=== PATIENT | female | born 1955 | race Asian ===

== ENCOUNTER 2019-12-24 18:19 | Inpatient (IN) | payer OTHER ==
[2019-12-24] MEDS ORDERED: GuaiFENesin/D-METHORPHAN [SUGAR-FREE] 200-20MG/10 ML SYRUP UDCUP PO PRN (18:45)
[2019-12-24] MEDS: THIAMINE 100 MG TABLET PO SCH (18:45)
[2019-12-24] MEDS ORDERED: PROMETHAZINE HCL 25 MG TABLET PO PRN (18:45)
[2019-12-24] MEDS ORDERED: QUEtiapine FUMARATE 100 MG TABLET PO PRN (18:45)
[2019-12-24] MEDS ORDERED: LORazepam 2 MG TABLET PO PRN (18:45)
[2019-12-24] MEDS ORDERED: TUBERCULIN, PURIFIED PROTEIN DERIVATIVE 5 TU/0.1 ML SYRINGE ID ONE (18:45)
[2019-12-24] MEDS ORDERED: LOPERAMIDE HCL 2 MG CAPSULE PO PRN (18:45)
[2019-12-24] MEDS ORDERED: MAG HYDROX/AL HYDROX/SIMETH ES 30 ML SUSPENSION UDCUP PO PRN (18:45)
[2019-12-24] MEDS ORDERED: ZOLPIDEM TARTRATE 10 MG TABLET PO PRN (18:45)
[2019-12-24] MEDS ORDERED: ACETAMINOPHEN 325 MG TABLET PO PRN (18:45)
[2019-12-24] MEDS ORDERED: HydrOXYzine PAMOATE 50 MG CAPSULE PO PRN (18:45)
[2019-12-24] MEDS ORDERED: MAGNESIUM HYDROXIDE SUSPENSION 30 ML UDCUP PO PRN (18:45)
[2019-12-24] MEDS ORDERED: DiphenhydrAMINE HCL 50 MG/ML VIAL ONE (18:58)
[2019-12-24] MEDS ORDERED: HALOPERIDOL LACTATE 5 MG/ML VIAL ONE (18:58)
[2019-12-24] MEDS ORDERED: LORazepam 2 MG/ML VIAL ONE (18:58)
[2019-12-24] MEDS ORDERED: LORazepam 2 MG/ML VIAL IM ONE (19:00)
[2019-12-24] MEDS ORDERED: DiphenhydrAMINE HCL 50 MG/ML VIAL IM ONE (19:00)
[2019-12-24] MEDS ORDERED: HALOPERIDOL LACTATE 5 MG/ML VIAL IM ONE (19:00)
[2019-12-24 20:50] VITALS: BP 142/82
[2019-12-25] MEDS: THIAMINE 100 MG TABLET PO SCH (08:07)
[2019-12-25 08:26] VITALS: BP 137/81
[2019-12-25] MEDS ORDERED: FOLIC ACID 1 MG TABLET PO SCH (09:00)
[2019-12-25] MEDS ORDERED: MULTIVITAMINS WITH MINERALS, THERAPEUTIC TABLET PO SCH (09:00)
[2019-12-25] MEDS ORDERED: DULoxetine HCL 20 MG CAPSULE PO SCH (09:00)
[2019-12-25] MEDS ORDERED: DULO20CA27 PO (15:15)
[2019-12-25 16:10] VITALS: BP 146/84
== END 2019-12-25 19:35 | disposition home or self-care (01) | DRG 881 ==
LOC: B2S 18:44
PROVIDERS: ADMIT Psychiatry & Neurology Psychiatry; ATTEND Psychiatry & Neurology Psychiatry
DX: F32.9 Major depressive disorder, single episode, unspecified (principal); R45.851 Suicidal ideations
CPT/HCPCS: J1200; J1630; J2060